=== PATIENT | female | born 1940 | race Caucasian/White ===

== ENCOUNTER 2021-06-07 19:44 | Inpatient (IN) | payer MEDICARE, BC ==
[2021-06-07 22:47] VITALS: BMI 31.8
[2021-06-08] MEDS ORDERED: Ondansetron PF 4 MG/2 ML Vial IVP PRN (04:54)
[2021-06-08] MEDS ORDERED: Acetaminophen 325 MG TAB PO PRN (04:54)
[2021-06-08] MEDS ORDERED: Dextrose 50% Abboject 50 ML SYRINGE SLOW IVP PRN (04:55)
[2021-06-08] MEDS ORDERED: HumaLOG 300 UNITS/3 ML VIAL SC PRN ×2 (04:55)
[2021-06-08] MEDS ORDERED: Dextrose 5% in Water 1,000 ML IV PRN (04:55)
[2021-06-08] MEDS ORDERED: hydrALAZINE 20 MG/ML VIAL SLOW IVP PRN (04:56)
[2021-06-08 08:18] LABS: #Lymphocytes 2.1 thou/uL (1.20-3.40); #Monocytes 0.5 thou/uL (0.11-0.59); #Neutrophils 4.8 thou/uL (1.40-6.50); %Basophils 0.4 % (0.0-1.0); %Eosinophils 0.7 % (0.0-10.0); %Lymphocytes 28.1 % (21.0-51.0); %Monocytes 7.1 % (0.0-10.0); %Neutrophils 63.7 % (42.0-75.0); Hemoglobin 12.4 g/dL (12.0-16.0); Mean Corpuscular Hemoglobin 31.9 pg (27.0-31.0); Mean Corpuscular Volume 99.5 fL (78.0-98.0); Mean Platelet Volume 6.7 fL (7.4-10.4); Platelet Count 145 thou/uL (130-400); Red Blood Cell (RBC) Count 3.89 mill/uL (4.20-5.40); White Blood Cell (WBC) Count 7.6 thou/uL (4.8-10.8)
[2021-06-08] MEDS ORDERED: Acetaminophen/Codeine 30-300mg Tablet PO PRN (08:30)
[2021-06-08] MEDS ORDERED: Morphine 2 MG/ML VIAL SLOW IVP PRN (08:30)
[2021-06-08] MEDS ORDERED: Diazepam 10 MG/2 ML SYRINGE IVP SCH (08:31)
[2021-06-08] MEDS ORDERED: Morphine 4 MG/ML VIAL SLOW IVP PRN (08:43)
[2021-06-08 08:49] LABS: Anion Gap 14 mmol/L (10-20); BUN (Urea Nitrogen) 15 mg/dL (9.8-20.1); Calc. Creatinine Clearance 77 mL/min (70-130); Calcium 9.7 mg/dL (7.8-10.44); Carbon Dioxide 25 mmol/L (23-31); Chloride 107 mmol/L (98-107); Glucose 100 mg/dL (83-110); Sodium 142 mmol/L (136-145)
[2021-06-08] MEDS: Enoxaparin Sodium 40 MG/0.4 ML SYRINGE SC SCH (10:52)
[2021-06-08] MEDS: Lisinopril 10 MG TAB PO SCH (10:55)
[2021-06-08] MEDS: Furosemide 20 MG TAB PO SCH (10:55)
[2021-06-08] MEDS: Amlodipine 5 MG TAB PO SCH ×2 (11:18→13:23)
[2021-06-08] MEDS: HYDROcodone/Acetaminophen 7.5/325 mg Tablet PO PRN ×2 (11:42→21:23)
[2021-06-08] MEDS: Amitriptyline HCl 25 MG TAB PO SCH (21:23)
[2021-06-08] MEDS: Atorvastatin Calcium 20 MG TAB PO SCH (21:23)
[2021-06-08] MEDS: Donepezil HCl 5 MG TAB PO SCH (21:24)
[2021-06-08] MEDS: rOPINIRole HCl 2 MG TAB PO SCH (21:24)
[2021-06-09 06:02] LABS: #Basophils 0.1 thou/uL (0.0-0.2); #Eosinphils 0.1 thou/uL (0.0-0.7); #Lymphocytes 2.3 thou/uL (1.20-3.40); #Monocytes 0.5 thou/uL (0.11-0.59); #Neutrophils 4.6 thou/uL (1.40-6.50); %Basophils 0.7 % (0.0-1.0); %Eosinophils 1.4 % (0.0-10.0); %Lymphocytes 30.7 % (21.0-51.0); %Monocytes 6.3 % (0.0-10.0); %Neutrophils 60.9 % (42.0-75.0); Hemoglobin 12.3 g/dL (12.0-16.0); Mean Corpuscular HGB CONC 34.3 g/dL (32.0-36.0); Mean Corpuscular Hemoglobin 33.9 pg (27.0-31.0); Mean Corpuscular Volume 98.6 fL (78.0-98.0); Mean Platelet Volume 6.5 fL (7.4-10.4); Platelet Count 160 thou/uL (130-400); RBC Distribution Width 11.9 % (11.5-14.5); Red Blood Cell (RBC) Count 3.62 mill/uL (4.20-5.40); White Blood Cell (WBC) Count 7.5 thou/uL (4.8-10.8)
[2021-06-09 06:24] LABS: Anion Gap 12 mmol/L (10-20); BUN (Urea Nitrogen) 20 mg/dL (9.8-20.1); Calc. Creatinine Clearance 69 mL/min (70-130); Calcium 9.3 mg/dL (7.8-10.44); Carbon Dioxide 29 mmol/L (23-31); Chloride 103 mmol/L (98-107); Glucose 144 mg/dL (83-110); Potassium 3.9 mmol/L (3.5-5.1); Sodium 140 mmol/L (136-145)
[2021-06-09] MEDS: CeleCOXIB 100 MG CAP PO SCH (08:15)
[2021-06-09] MEDS: Lisinopril 10 MG TAB PO SCH (08:16)
[2021-06-09] MEDS: Furosemide 20 MG TAB PO SCH (08:16)
[2021-06-09] MEDS: Enoxaparin Sodium 40 MG/0.4 ML SYRINGE SC SCH (08:17)
[2021-06-09] MEDS: Amlodipine 5 MG TAB PO SCH (08:17)
[2021-06-09] MEDS ORDERED: Non-Formulary Item 1 EACH (Celecoxib [Celecoxib] 200 MG Capsule) PO SCH (09:00)
[2021-06-09] MEDS ORDERED: Amlodipine 5 MG TAB PO SCH (10:17)
[2021-06-09] MEDS: rOPINIRole HCl 2 MG TAB PO SCH (20:48)
[2021-06-09] MEDS: Donepezil HCl 5 MG TAB PO SCH (20:48)
[2021-06-09] MEDS: Amitriptyline HCl 25 MG TAB PO SCH (20:48)
[2021-06-09] MEDS: Atorvastatin Calcium 20 MG TAB PO SCH (20:48)
[2021-06-10 06:19] LABS: Anion Gap 10 mmol/L (10-20); BUN (Urea Nitrogen) 26 mg/dL (9.8-20.1); Calc. Creatinine Clearance 72 mL/min (70-130); Calcium 9.2 mg/dL (7.8-10.44); Carbon Dioxide 29 mmol/L (23-31); Chloride 105 mmol/L (98-107); Glucose 114 mg/dL (83-110); Sodium 140 mmol/L (136-145)
[2021-06-10 06:30] LABS: Band 5 % (5-11); Lymphocytes 45 % (21-51); MDiff Complete? YES; Mean Corpuscular HGB CONC 33.6 g/dL (32.0-36.0); Mean Corpuscular Hemoglobin 33.2 pg (27.0-31.0); Mean Corpuscular Volume 98.8 fL (78.0-98.0); Mean Platelet Volume 6.6 fL (7.4-10.4); Neutrophil 50 % (42-75); Platelet Count 172 thou/uL (130-400); Platelet Morphology Comment Appears Adequate; RBC Morphology Normal; Red Blood Cell (RBC) Count 3.61 mill/uL (4.20-5.40); White Blood Cell (WBC) Count 9.2 thou/uL (4.8-10.8)
[2021-06-10 08:11] VITALS: TEMP 98
[2021-06-10] MEDS: Enoxaparin Sodium 40 MG/0.4 ML SYRINGE SC SCH (08:22)
[2021-06-10] MEDS: Furosemide 20 MG TAB PO SCH (08:23)
[2021-06-10] MEDS: Lisinopril 10 MG TAB PO SCH (08:23)
[2021-06-10] MEDS: CeleCOXIB 100 MG CAP PO SCH (08:23)
[2021-06-10] MEDS: Amlodipine 5 MG TAB PO SCH (08:24)
[2021-06-10] MEDS ORDERED: FLU VACC QS2021-22(65YR UP)/PF 240 MCG/0.7 ML SYRINGE IM ONE (09:00)
[2021-06-10 16:04] VITALS: BP 179/74
== END 2021-06-10 19:02 | DRG 544 ==
LOC: ERS 19:44 → T4-B 20:47 → OBSVTOIN 06-09 11:18
PROVIDERS: ADMIT Internal Medicine; ATTEND Family Medicine
DX: M84.48XA Pathological fracture, other site, initial encounter for fracture (principal); I10 Essential (primary) hypertension; E11.9 Type 2 diabetes mellitus without complications; E78.5 Hyperlipidemia, unspecified; M48.061 Spinal stenosis, lumbar region without neurogenic claudication; Z20.822 Contact with and (suspected) exposure to COVID-19; K21.9 Gastro-esophageal reflux disease without esophagitis; G25.81 Restless legs syndrome; M51.37 Other intervertebral disc degeneration, lumbosacral region; M51.16 Intervertebral disc disorders with radiculopathy, lumbar region; M47.817 Spondylosis without myelopathy or radiculopathy, lumbosacral region; F41.9 Anxiety disorder, unspecified; M48.07 Spinal stenosis, lumbosacral region; F32.A Depression, unspecified; Z90.49 Acquired absence of other specified parts of digestive tract; Z90.710 Acquired absence of both cervix and uterus
CPT/HCPCS: 36415; 36416; 72148; 80048; 85025; 96372; 96375; G0378; J1650; J1815; J2270